=== PATIENT | male | born 1985 | race Caucasian/White ===

== ENCOUNTER 2017-07-16 16:55 | Inpatient (IN) | payer OTHER ==
[~2017-07-16] VITALS: Ht 190.5 cm; Wt 72.6 kg
[2017-07-16 21:55] VITALS: BP 123/75
[2017-07-16] MEDS ORDERED: LORAZEPAM 2 MG/1 ML VIAL IM PRN (22:00)
[2017-07-16] MEDS ORDERED: MIRALAX 17 GM POWD.PACK PO PRN (22:00)
[2017-07-16] MEDS ORDERED: ONDANSETRON 4 MG/2 ML VIAL IM PRN (22:00)
[2017-07-16] MEDS ORDERED: LOPERAMIDE HCL 2 MG CAPSULE PO PRN ×2 (22:00)
[2017-07-16] MEDS ORDERED: ONDANSETRON ODT 4 MG TAB.RAPDIS SL PRN (22:00)
[2017-07-16] MEDS ORDERED: BUPRENORPHINE HCL 2 MG TAB.SUBL SL PRN (22:00)
[2017-07-16] MEDS ORDERED: CLONIDINE HCL 0.1 MG TABLET PO PRN (22:00)
[2017-07-16] MEDS ORDERED: DICYCLOMINE HCL 20 MG TABLET PO PRN (22:00)
[2017-07-16] MEDS ORDERED: NICOTINE POLACRILEX 4 MG GUM-PK OF TEN BC PRN (22:00)
[2017-07-16] MEDS ORDERED: DOCUSATE SODIUM 250 MG CAPSULE PO PRN (22:00)
[2017-07-16] MEDS ORDERED: ACETAMINOPHEN 325 MG TABLET PO PRN (22:00)
[2017-07-16] MEDS ORDERED: NICOTINE 14 MG/24HR PATCH TD PRN (22:00)
[2017-07-16] MEDS ORDERED: MAG HYDROX/AL HYDROX/SIMETH 30 ML LIQUID UDC PO PRN (22:00)
[2017-07-16] MEDS ORDERED: IBUPROFEN 600 MG TABLET PO PRN (22:00)
[2017-07-16 22:41] LABS: BASOPHILS % (AUTO) 0.7 % (0.0-2.0); EOSINOPHILS # (AUTO) 0.1 K/uL (0.0-0.7); EOSINOPHILS % (AUTO) 1.7 % (0.0-7.0); HEMATOCRIT 37.6 % (36.7-47.1); HEMOGLOBIN 12.8 g/dL (12.5-16.3); LYMPHOCYTES # (AUTO) 1.2 K/uL (20.0-40.0); LYMPHOCYTES % (AUTO) 18.3 % (20.5-51.5); MEAN CORPUSCULAR HEMOGLOBIN 29.4 uug (23.8-33.4); MEAN CORPUSCULAR HGB CONC 34 g/dL (32.5-36.3); MEAN CORPUSCULAR VOLUME 86.3 fL (73.0-96.2); MONOCYTES # (AUTO) 0.7 K/uL (2.0-10.0); NEUTROPHILS # (AUTO) 4.5 K/uL (1.8-8.9); NEUTROPHILS % (AUTO) 68.3 % (38.5-71.5); PLATELET COUNT (AUTO) 348 K/uL (152-348); RED BLOOD CELL COUNT(AUTO) 4.35 MIL/uL (4.06-5.63); WHITE BLOOD COUNT (AUTO) 6.5 K/uL (3.6-10.2)
[2017-07-16 22:49] LABS: ALANINE AMINOTRANSFERASE 21 U/L (16-63); ALKALINE PHOSPHATASE 123 U/L (50-136); ASPARTATE AMINOTRANSFERASE 20 U/L (15-37); BILIRUBIN,TOTAL 0.3 mg/dL (0.2-1.0); CARBON DIOXIDE 34 mmol/L (21-32); CHLORIDE 99 mmol/L (98-107); CREATININE 1.2 mg/dL (0.6-1.3); GLUCOSE 123 mg/dL (74-106); POTASSIUM 4.3 mmol/L (3.5-5.1); TOTAL PROTEIN, SERUM 8.8 g/dL (6.4-8.2); UREA NITROGEN, BLOOD 21 mg/dL (7-18)
[2017-07-16 22:56] LABS: ETHANOL < 3 MG/DL (0-0)
[2017-07-16] MEDS ORDERED: TRIA60LO14 TP (23:13)
[2017-07-16] MEDS ORDERED: DIPH25CA83 PO (23:13)
[2017-07-16] MEDS ORDERED: ACET-2605 PO (23:13)
[2017-07-16] MEDS ORDERED: [UNRECOGNIZED DRUG - OTHER] (23:13)
[2017-07-16] MEDS ORDERED: FORMULA (23:13)
[2017-07-16] MEDS: MAGNESIUM HYDROXIDE 30 ML LIQUID UDC PO PRN (23:34)
[2017-07-16] MEDS: METHOCARBAMOL 750 MG TABLET PO PRN (23:49)
[2017-07-17] VITALS: BP 116/74
[2017-07-17 02:46] LABS: *AMPHETAMINE, URINE POSITIVE (NEGATIVE); *BARBITURATE, URINE NEGATIVE (NEGATIVE); *CANNABINOID, URINE NEGATIVE (NEGATIVE); *COCCAINE, URINE NEGATIVE (NEGATIVE); *OPIATE, URINE POSITIVE (NEGATIVE); *PHENCYCLIDINE SCREEN,URINE NEGATIVE (NEGATIVE)
[2017-07-17 04:00] VITALS: BP 112/65
[2017-07-17 08:00] VITALS: BP 107/55
[2017-07-17] MEDS ORDERED: CLOBETASOL PROPIONATE 0.05% CREAM 15 GM TUBE TOP SCH (09:00)
[2017-07-17] MEDS: BUPRENORPHINE HCL 2 MG TAB.SUBL SL SCH ×4 (09:00→21:00)
[2017-07-17] MEDS ORDERED: TUBERCULIN,PURIF.PROT.DERIV. 5 TU/0.1 ML TEST ID ONE (09:00)
[2017-07-17] MEDS: SULFAMETH/TRIMETH 800/160 MG TABLET PO SCH ×2 (09:03→21:37)
[2017-07-17] MEDS: LORAZEPAM 1 MG TABLET PO PRN ×5 (09:03→21:37)
[2017-07-17] MEDS: LACTOBACILLUS RHAMNOSUS GG 1 EACH CAPSULE PO SCH ×2 (09:03→21:37)
[2017-07-17] MEDS: CLOBETASOL PROPIONATE 0.05% OINT 15 GM TUBE TP SCH ×2 (11:15→17:00)
[2017-07-17] MEDS: METHOCARBAMOL 750 MG TABLET PO PRN (11:41)
[2017-07-17 12:00] VITALS: BP 139/82
[2017-07-17 16:00] VITALS: BP 113/62
[2017-07-17 20:00] VITALS: BP 134/66
[2017-07-17] MEDS: MAGNESIUM HYDROXIDE 30 ML LIQUID UDC PO PRN (21:37)
[2017-07-18] VITALS (7 sets, daily range): BP systolic 109–124; BP diastolic 58–79
[2017-07-18] MEDS: LORAZEPAM 1 MG TABLET PO PRN ×3 (00:43→14:33)
[2017-07-18] MEDS: diphenhydrAMINE 50 MG CAPSULE PO PRN (00:43)
[2017-07-18] MEDS: CLOBETASOL PROPIONATE 0.05% OINT 15 GM TUBE TP SCH ×2 (08:31→16:25)
[2017-07-18] MEDS: LACTOBACILLUS RHAMNOSUS GG 1 EACH CAPSULE PO SCH ×2 (08:31→21:00)
[2017-07-18] MEDS: SULFAMETH/TRIMETH 800/160 MG TABLET PO SCH ×2 (08:31→21:00)
[2017-07-18] MEDS: buPROPion SR 100 MG TABLET.SA PO SCH (08:31)
[2017-07-18] MEDS: BUPRENORPHINE HCL 2 MG TAB.SUBL SL SCH ×3 (09:00→21:00)
[2017-07-18] MEDS ORDERED: HYDROXYZINE PAMOATE 25 MG CAPSULE PO PRN (09:00)
[2017-07-18 11:06] LABS: HEPATITIS B SURFACE AG Negative (Negative)
[2017-07-18] MEDS: GABAPENTIN 300 MG CAPSULE PO SCH ×2 (14:11→21:00)
[2017-07-18] MEDS: CLONIDINE HCL 0.1 MG TABLET PO SCH (21:00)
[2017-07-19 00:19] VITALS: BP 116/73
[2017-07-19 04:18] VITALS: BP 114/75
[2017-07-19 08:00] VITALS: BP 119/69
[2017-07-19] MEDS ORDERED: BUPRENORPHINE HCL 2 MG TAB.SUBL SL SCH (09:00)
[2017-07-19] MEDS: SULFAMETH/TRIMETH 800/160 MG TABLET PO SCH ×2 (09:45→20:47)
[2017-07-19] MEDS: GABAPENTIN 300 MG CAPSULE PO SCH ×2 (09:46→14:25)
[2017-07-19] MEDS: buPROPion SR 100 MG TABLET.SA PO SCH (09:46)
[2017-07-19] MEDS: LACTOBACILLUS RHAMNOSUS GG 1 EACH CAPSULE PO SCH ×2 (09:46→20:47)
[2017-07-19] MEDS: CLONIDINE HCL 0.1 MG TABLET PO SCH ×2 (09:46→20:47)
[2017-07-19] MEDS: CLOBETASOL PROPIONATE 0.05% OINT 15 GM TUBE TP SCH ×2 (09:47→17:05)
[2017-07-19 12:00] VITALS: BP 117/76
[2017-07-19] MEDS ORDERED: KETOROLAC TROMETHAMINE 30 MG INJ IM PRN (12:15)
[2017-07-19] MEDS: BUPRENORPHINE HCL 2 MG TAB.SUBL SL SCH ×2 (14:25→20:48)
[2017-07-19] MEDS: METHOCARBAMOL 750 MG TABLET PO PRN ×2 (14:35→22:47)
[2017-07-19 16:00] VITALS: BP 96/96
[2017-07-19] MEDS ORDERED: LORAZEPAM 1 MG TABLET PO PRN ×2 (17:00)
[2017-07-19 20:00] VITALS: BP 112/71
[2017-07-19] MEDS: TRAZODONE 50 MG TABLET PO PRN (21:00)
[2017-07-19] MEDS ORDERED: GABAPENTIN 300 MG CAPSULE PO SCH (21:00)
[2017-07-19] MEDS: diphenhydrAMINE 50 MG CAPSULE PO PRN (22:47)
[2017-07-20] MEDS: SULFAMETH/TRIMETH 800/160 MG TABLET PO SCH ×2 (08:48→21:29)
[2017-07-20] MEDS: GABAPENTIN 300 MG CAPSULE PO SCH ×3 (08:48→21:29)
[2017-07-20] MEDS: LACTOBACILLUS RHAMNOSUS GG 1 EACH CAPSULE PO SCH ×2 (08:48→21:29)
[2017-07-20] MEDS: buPROPion SR 100 MG TABLET.SA PO SCH (08:48)
[2017-07-20] MEDS: BUPRENORPHINE HCL 2 MG TAB.SUBL SL SCH ×3 (08:49→21:29)
[2017-07-20] MEDS: CLONIDINE HCL 0.1 MG TABLET PO SCH ×3 (08:49→21:29)
[2017-07-20] MEDS: CLOBETASOL PROPIONATE 0.05% OINT 15 GM TUBE TP SCH ×2 (08:53→17:00)
[2017-07-20 09:00] VITALS: BP 108/74
[2017-07-20 12:00] VITALS: BP 110/73
[2017-07-20 16:00] VITALS: BP 116/84
[2017-07-20 20:15] VITALS: BP 135/86
[2017-07-20] MEDS: TRAZODONE 50 MG TABLET PO PRN (22:49)
[2017-07-21 00:29] VITALS: BP 126/74
[2017-07-21 04:20] VITALS: BP 122/69
[2017-07-21 08:00] VITALS: BP 107/65
[2017-07-21] MEDS ORDERED: BUPRENORPHINE HCL 2 MG TAB.SUBL SL SCH (09:00)
[2017-07-21] MEDS: LACTOBACILLUS RHAMNOSUS GG 1 EACH CAPSULE PO SCH ×2 (09:22→21:16)
[2017-07-21] MEDS: GABAPENTIN 300 MG CAPSULE PO SCH ×3 (09:22→21:16)
[2017-07-21] MEDS: CLONIDINE HCL 0.1 MG TABLET PO SCH ×3 (09:23→21:16)
[2017-07-21] MEDS: SULFAMETH/TRIMETH 800/160 MG TABLET PO SCH ×2 (09:23→21:16)
[2017-07-21] MEDS: buPROPion SR 100 MG TABLET.SA PO SCH (09:23)
[2017-07-21] MEDS: CLOBETASOL PROPIONATE 0.05% OINT 15 GM TUBE TP SCH ×2 (09:31→17:22)
[2017-07-21 12:00] VITALS: BP 117/72
[2017-07-21 16:00] VITALS: BP 127/73
[2017-07-21] MEDS ORDERED: HYDR-3895 PO (19:55)
[2017-07-21] MEDS ORDERED: GABA-534 PO (19:55)
[2017-07-21] MEDS ORDERED: TRAZ-144 PO (19:55)
[2017-07-21] MEDS ORDERED: BUPR100T6 PO (19:55)
[2017-07-21] MEDS ORDERED: IBUP-1955 PO (19:55)
[2017-07-21] MEDS ORDERED: DIPH50CA37 PO (19:55)
[2017-07-21] MEDS ORDERED: DICY20TA28 PO (19:55)
[2017-07-21] MEDS ORDERED: METH-406 PO (19:55)
[2017-07-21] MEDS ORDERED: CLON0.1T14 PO (19:55)
[2017-07-21] MEDS ORDERED: CLOB15OI8 TP (20:01)
[2017-07-21 20:30] VITALS: BP 115/82
[2017-07-22 00:36] VITALS: BP 109/76
[2017-07-22 04:12] VITALS: BP 113/66
[2017-07-22 08:00] VITALS: BP 106/72
[2017-07-22 08:03] VITALS: BP 106/72
[2017-07-22] MEDS: LACTOBACILLUS RHAMNOSUS GG 1 EACH CAPSULE PO SCH (08:03)
[2017-07-22] MEDS: CLONIDINE HCL 0.1 MG TABLET PO SCH (08:03)
[2017-07-22] MEDS: SULFAMETH/TRIMETH 800/160 MG TABLET PO SCH (08:03)
[2017-07-22] MEDS: GABAPENTIN 300 MG CAPSULE PO SCH (08:03)
[2017-07-22] MEDS: CLOBETASOL PROPIONATE 0.05% OINT 15 GM TUBE TP SCH (08:03)
[2017-07-22] MEDS: buPROPion SR 100 MG TABLET.SA PO SCH (08:03)
== END 2017-07-22 09:37 | disposition other institution (70) | DRG 895 ==
LOC: SRC 21:02
PROVIDERS: ADMIT Internal Medicine; ATTEND Internal Medicine
PROC: HZ2ZZZZ Detoxification Services for Substance Abuse Treatment (ICD-10-PCS; principal; 2017-07-16)
PROC: HZ31ZZZ Individual Counseling for Substance Abuse Treatment, Behavioral (ICD-10-PCS; 2017-07-19)
PROC: HZ41ZZZ Group Counseling for Substance Abuse Treatment, Behavioral (ICD-10-PCS; 2017-07-20)
DX: F11.23 Opioid dependence with withdrawal (principal); E87.3 Alkalosis; Z86.74 Personal history of sudden cardiac arrest; F33.1 Major depressive disorder, recurrent, moderate; L03.115 Cellulitis of right lower limb; L03.116 Cellulitis of left lower limb; L02.414 Cutaneous abscess of left upper limb; E86.0 Dehydration; F13.239 Sedative, hypnotic or anxiolytic dependence with withdrawal, unspecified; F17.210 Nicotine dependence, cigarettes, uncomplicated; Z81.8 Family history of other mental and behavioral disorders; F15.23 Other stimulant dependence with withdrawal; F12.10 Cannabis abuse, uncomplicated; Z59.1 Inadequate housing; F43.10 Post-traumatic stress disorder, unspecified; Z65.3 Problems related to other legal circumstances; L40.9 Psoriasis, unspecified; Z91.14 Patient's other noncompliance with medication regimen; Z91.89 Other specified personal risk factors, not elsewhere classified; S71.131S Puncture wound without foreign body, right thigh, sequela; S51.832S Puncture wound without foreign body of left forearm, sequela; L08.9 Local infection of the skin and subcutaneous tissue, unspecified; X78.8XXS Intentional self-harm by other sharp object, sequela; S71.132S Puncture wound without foreign body, left thigh, sequela; Z81.1 Family history of alcohol abuse and dependence; R73.9 Hyperglycemia, unspecified
CPT/HCPCS: 36415; 70030-TC; 80307; 80324; 80361; 83735; 85025; 86580; 86592; 86705; 86803; 87340; 87806; A4663; G0480; Q0163